=== PATIENT | male | born 1995 | race Caucasian/White ===

== ENCOUNTER 2019-12-03 20:36 | Emergency (ER) | payer SELFPAY ==
[2019-12-03 20:51] VITALS: BP 164/86
--- NOTE | 2019-12-03 21:12 | ER Document Report ---
ED Medical Screen (RME) - General Chief Complaint: Chest Pain Stated Complaint: CHEST PAIN TINGLING IN LEFT ARM HIGH PRESSURE Time Seen by Provider: 12/03/19 21:07 Mode of Arrival: Ambulatory Information source: Patient Notes: 24-year-old male presented to ED for complaint of chest pain for the last 3 to 4 days. He states he does a lot of heavy lifting at work. He states he has never had any pain like this before and is done this heavy lifting for a long time. He states he does have an aunt that had a heart attack in her 30s but nothing else that he knows of. He does have past medical history of vasectomy cystectomy and right inguinal hernia repair. He does smoke every other day does not drink or use any illicit drugs. He is alert oriented respirations regular nonlabored speaking in full sentences. He does have tenderness to the left shoulder and the left upper chest. We will get blood test and shoulder x-ray. I have greeted and performed a rapid initial assessment of this patient. A comprehensive ED assessment and evaluation of the patient, analysis of test results and completion of medical decision making process will be conducted by an additional ED providers. - Related Data Allergies/Adverse Reactions: No Known Allergies Allergy (Unverified 12/03/19 21:04) Past Medical History - Social History Frequency of alcohol use: None Drug Abuse: None Physical Exam - Vital signs Vitals: Temp Pulse Resp BP Pulse Ox 98.8 F 106 H 18 164/86 H 98 12/03/19 20:50 12/03/19 20:50 12/03/19 20:50 12/03/19 20:50 12/03/19 20:50 Course - Vital Signs Vital signs: Temp Pulse Resp BP Pulse Ox 98.8 F 106 H 18 164/86 H 98 12/03/19 20:50 12/03/19 20:50 12/03/19 20:50 12/03/19 20:50 12/03/19 20:50
[2019-12-03 21:34] LABS: ABSOLUTE EOSINOPHILS # (AUTO) 0.1 10^3/uL (0.0-0.6); ABSOLUTE LYMPHOCYTES (AUTO) 2.2 10^3/uL (0.5-4.7); ABSOLUTE MONOCYTES (AUTO) 0.6 10^3/uL (0.1-1.4); ABSOLUTE NEUT (AUTO) 4.6 10^3/uL (1.7-8.2); BASOPHILS % (AUTO) 0.3 % (0-2); EOSINOPHILS % (AUTO) 1.3 % (0-6); HEMOGLOBIN 17.2 g/dL (13.5-17.0); MEAN CORPUSCULAR HEMOGLOBIN 31.6 pg (27.0-33.4); MEAN CORPUSCULAR HGB CONC 35.9 g/dL (32.0-36.0); MEAN CORPUSCULAR VOLUME 88 fl (80-97); MONOCYTES % (AUTO) 7.3 % (3-13); PLATELET COUNT 203 10^3/uL (150-450); RED BLOOD COUNT 5.45 10^6/uL (4.35-5.55); RED CELL DISTRIBUTION WIDTH 12.5 % (11.5-14.0); SEGMENTED NEUTROPHILS % (AUTO) 61.1 % (42-78); TOTAL CELLS COUNTED % (AUTO) 100 %; WHITE BLOOD COUNT 7.5 10^3/uL (4.0-10.5)
--- NOTE | 2019-12-03 22:03 | RADIOLOGY REPORT (SQ) ---
EXAM DESCRIPTION: XR CHEST 2 VIEWS COMPLETED DATE/TME: 12/03/2019 21:12 CLINICAL HISTORY: 24 years, Male, left chest pain COMPARISON: None. NUMBER OF VIEWS: 2 TECHNIQUE: PA and lateral views of the chest were obtained. LIMITATIONS: None. FINDINGS: The heart, lungs, and pleural spaces appear within normal limits. No bony abnormality is seen. IMPRESSION: Negative study copyright 2010 [employer]- All Rights Reserved
--- NOTE | 2019-12-03 22:04 | RADIOLOGY REPORT (SQ) ---
EXAM DESCRIPTION: X-ray, three views of the left shoulder CLINICAL HISTORY: 24 years Male, left shoulder pain COMPARISON: None. FINDINGS: The shoulder joint is appropriately positioned. No fracture, subluxation or dislocation. Scapula is intact. Visualized portion of the left ribs are normal. Heart size is normal. The left lung is clear. Soft tissues are unremarkable. No degenerative change. IMPRESSION: Unremarkable radiographs of the left shoulder. No acute process.
[2019-12-03 22:32] LABS: ALBUMIN 4.8 g/dL (3.5-5.0); ALKALINE PHOSPHATASE 82 U/L (38-126); ANION GAP 14 (5-19); ASPARTATE AMINO TRANSFERASE 35 U/L (17-59); BILIRUBIN,DIRECT 0.2 mg/dL (0.0-0.4); BILIRUBIN,TOTAL 1.1 mg/dL (0.2-1.3); BLOOD UREA NITROGEN 15 mg/dL (7-20); CALCIUM 9.7 mg/dL (8.4-10.2); CARBON DIOXIDE 23 mmol/L (22-30); CHLORIDE 102 mmol/L (98-107); GLUCOSE 99 mg/dL (75-110); POTASSIUM 3.8 mmol/L (3.6-5.0); TOTAL PROTEIN 7.4 g/dL (6.3-8.2)
[2019-12-03 22:49] LABS: URINE AMPHETAMINES SCREEN NEGATIVE; URINE BARBITURATES SCREEN NEGATIVE; URINE BENZODIAZEPINES SCREEN NEGATIVE; URINE COCAINE SCREEN NEGATIVE; URINE MARIJUANA (THC) SCREEN NEGATIVE; URINE METHADONE SCREEN NEGATIVE; URINE PHENCYCLIDINE SCREEN NEGATIVE
--- NOTE | 2019-12-04 07:09 | EKG REPORT ---
SEVERITY:- BORDERLINE ECG - SINUS TACHYCARDIA INFERIOR Q WAVES, PROBABLY NORMAL VARIATION : Confirmed by: Reese Mullins MD 04-Dec-2019 07:08:34
== END 2019-12-03 23:00 | disposition left against medical advice (07) ==
LOC: ER 20:36
DX: R07.9 Chest pain, unspecified (principal); X50.0XXA Overexertion from strenuous movement or load, initial encounter; Z53.20 Procedure and treatment not carried out because of patient's decision for unspecified reasons
CPT/HCPCS: 36415; 71046; 80053; 80307; 84484; 85025; 93005; 93010; 99281